=== PATIENT | female | born 2000 | race Caucasian/White ===

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

== ENCOUNTER 2021-08-31 07:37 | Emergency (ER) | payer OTHER ==
[~2021-08-31] VITALS: Ht 162.6 cm; Wt 54.4 kg
[~2021-08-31 07:37] MED LIST: HYDROCODON-ACE1 EA11 PO; NEURONTIN300 MG PO; PEPCID20 MG PO; PREDNISONE20 MG PO; ZYRTEC10 MG PO
--- OUTSIDE RECORDS SUMMARY | 2021-08-31 07:44 | XMS ---
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 - Patient with suicidal and/or homicidal ideations eloped. - Patient eloped with IV in place. Details: PATIENT LWBS CRITERIA MET - Group Notification CARE PROVIDERS There are no care providers on record at this time. Care Guidelines exist for the following facilities: [facility] ( 07/19/2019 ) Gabriela VISIT COUNT (12 MO.) 2 [facility]. TOTAL 2 NOTE: Visits indicate total known visits. ED/UCC VISIT TRACKING (12 MO.) 08/31/2021 07:37 [facility] [place] TYPE: Emergency COMPLAINT: - ABD PAIN 06/28/2021 18:00 [facility] [place] TYPE: Emergency COMPLAINT: - POSS STD EXPOSURE INPATIENT VISIT TRACKING (12 MO.) No inpatient visits to display in this time frame [id number]
[2021-08-31] MEDS ORDERED: ONDANSETRON ODT4 MG PO (14:00)
== END 2021-08-31 11:09 | disposition home or self-care (01) ==
LOC: ED 07:37
DX: R10.13 Epigastric pain (principal)
CPT/HCPCS: 36415; 76830; 76856; 80053; 81001; 83690; 84703; 85025; 96374; 99284-25; J2405

== ENCOUNTER 2021-08-31 13:52 | Emergency (ER) | payer OTHER ==
[~2021-08-31] VITALS: Ht 162.6 cm; Wt 54.4 kg
[2021-08-31] MEDS ORDERED: ONDANSETRON ODT4 MG PO (14:00)
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
== END 2021-08-31 19:04 | disposition home or self-care (01) ==
LOC: ED 13:52
DX: R11.2 Nausea with vomiting, unspecified (principal); R10.12 Left upper quadrant pain
CPT/HCPCS: 74177; 96374; 99284-25; J2405; Q9967

== ENCOUNTER 2021-10-16 01:16 | Emergency (ER) | payer OTHER ==
[~2021-10-16] VITALS: Ht 162.6 cm; Wt 55.0 kg
[~2021-10-16 01:16] MED LIST changes: +ONDANSETRON ODT4 MG PO
--- OUTSIDE RECORDS SUMMARY | 2021-10-16 01:20 | XMS ---
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 06/28/2021 18:00 - Patient eloped before treatment completed. - Patient with suicidal and/or homicidal ideations eloped. - Patient eloped with IV in place. Details: PATIENT LWBS CRITERIA MET - Group Notification CARE PROVIDERS There are no care providers on record at this time. Care Guidelines exist for the following facilities: [facility] ( 07/19/2019 ) [place]ela VISIT COUNT (12 MO.) 4 [facility]. TOTAL 4 NOTE: Visits indicate total known visits. ED/UCC VISIT TRACKING (12 MO.) 10/16/2021 01:17 [facility] [place] TYPE: Emergency COMPLAINT: - VAGINAL BLEEDING 08/31/2021 13:53 [facility] [place] TYPE: Emergency COMPLAINT: - ABD PAIN,VOMITING DIAGNOSES: - Left upper quadrant pain - Nausea with vomiting, unspecified 08/31/2021 07:37 [facility] [place] TYPE: Emergency COMPLAINT: - ABD PAIN DIAGNOSES: - Epigastric pain 06/28/2021 18:00 [facility] [place] TYPE: Emergency COMPLAINT: - POSS STD EXPOSURE INPATIENT VISIT TRACKING (12 MO.) No inpatient visits to display in this time frame [email or web address]
[2021-10-16] MEDS ORDERED: PREMARIN1.25 MG PO (02:15)
== END 2021-10-16 02:34 | disposition home or self-care (01) ==
LOC: ED 01:16
DX: N92.0 Excessive and frequent menstruation with regular cycle (principal)
CPT/HCPCS: 36415; 84703; 85025; 99284; A9270

== ENCOUNTER 2021-11-05 23:49 | Emergency (ER) | payer OTHER ==
[~2021-11-05] VITALS: Ht 162.6 cm; Wt 52.3 kg
[~2021-11-05 23:49] MED LIST changes: +PREMARIN1.25 MG PO
--- OUTSIDE RECORDS SUMMARY | 2021-11-05 23:56 | XMS ---
PreManage Notification: VIC PRITCHARD Security Rehabilitation Worker Events 1 event(s) in the past 18 months Most recent security events: Elopement at [facility] 06/28/2021 18:00 - Patient eloped before treatment completed. - Patient with suicidal and/or homicidal ideations eloped. - Patient eloped with IV in place. Details: PATIENT LWBS CRITERIA MET - Group Notification - [facility] - 2 Visits in 30 Days CARE PROVIDERS There are no care providers on record at this time. Care Guidelines exist for the following facilities: [facility] ( 07/19/2019 ) Gabriela VISIT COUNT (12 MO.) 5 [facility] TOTAL 5 NOTE: Visits indicate total known visits. ED/UCC VISIT TRACKING (12 MO.) 11/05/2021 23:50 [facility] [place] TYPE: Emergency COMPLAINT: - SUICIDAL/ DRUG USE 10/16/2021 01:17 [facility] [place] TYPE: Emergency COMPLAINT: - VAGINAL BLEEDING DIAGNOSES: - Excessive and frequent menstruation with regular cycle - Abnormal uterine and vaginal bleeding, unspecified 08/31/2021 13:53 [facility] [place] TYPE: Emergency COMPLAINT: - ABD PAIN,VOMITING DIAGNOSES: - Nausea with vomiting, unspecified - Left upper quadrant pain 08/31/2021 07:37 [facility] [place] TYPE: Emergency COMPLAINT: - ABD PAIN DIAGNOSES: - Epigastric pain 06/28/2021 18:00 [facility] [place] TYPE: Emergency COMPLAINT: - POSS STD EXPOSURE INPATIENT VISIT TRACKING (12 MO.) No inpatient visits to display in this time frame [id number]
== END 2021-11-06 18:09 | disposition home or self-care (01) ==
LOC: ED 23:49
DX: R45.851 Suicidal ideations (principal); F19.10 Other psychoactive substance abuse, uncomplicated; Z20.822 Contact with and (suspected) exposure to COVID-19
CPT/HCPCS: 36415; 80053; 81001; 84443; 84703; 85025; 87502; 99284; G0480; U0003

== ENCOUNTER 2022-04-17 14:57 | Emergency (ER) | payer OTHER ==
[~2022-04-17] VITALS: Ht 162.6 cm; Wt 51.8 kg
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
[2022-04-17] MEDS ORDERED: MUPIROCIN22 GM TOP (18:48)
[2022-04-17] MEDS ORDERED: DOXYCYCLINE HY100 MG PO (18:48)
== END 2022-04-17 18:58 | disposition home or self-care (01) ==
LOC: ED 14:57
DX: L02.01 Cutaneous abscess of face (principal)
CPT/HCPCS: 99283